=== PATIENT | male | born 1980 ===

== ENCOUNTER 2023-02-06 09:14 | Emergency (ER) | payer SELFPAY ==
[~2023-02-06] VITALS: Ht 162.6 cm; Wt 50.0 kg
[2023-02-06 09:19] VITALS: TEMP 98.5
[2023-02-06] MEDS ORDERED: DiphenhydrAMINE HCL 25 MG CAPSULE PO ONE (10:15)
[2023-02-06 11:52] VITALS: BP 138/79; PULSE 72; RESP 18
== END 2023-02-06 11:59 | disposition home or self-care (01) ==
LOC: EMS 09:20
DX: L30.9 Dermatitis, unspecified (principal); E11.9 Type 2 diabetes mellitus without complications; I10 Essential (primary) hypertension; F17.210 Nicotine dependence, cigarettes, uncomplicated; F12.90 Cannabis use, unspecified, uncomplicated; F15.90 Other stimulant use, unspecified, uncomplicated
CPT/HCPCS: 99283